=== PATIENT | female | born 1995 | race African-American/Black ===

== ENCOUNTER 2019-03-29 08:24 | Observation (INO) | payer MEDICAID ==
[2019-03-29] MEDS ORDERED: PREN-52 PO (23:18)
[2019-03-30] MEDS ORDERED: FERR325T6 PO (11:02)
== END 2019-03-29 10:23 | disposition home or self-care (01) ==
LOC: 8 EST LDRP 08:24
PROVIDERS: ADMIT Specialist; ATTEND Specialist
DX: O48.0 Post-term pregnancy (principal); Z3A.40 40 weeks gestation of pregnancy
CPT/HCPCS: 99281; G0378

== ENCOUNTER 2019-03-29 20:30 | Observation (INO) | payer MEDICAID ==
[2019-03-29] MEDS ORDERED: PREN-52 PO (23:18)
[2019-03-30] MEDS ORDERED: FERR325T6 PO (11:02)
== END 2019-03-29 23:25 | disposition home or self-care (01) ==
LOC: 8 EST LDRP 20:30
PROVIDERS: ADMIT Specialist; ATTEND Specialist
DX: O60.14X0 Preterm labor third trimester with preterm delivery third trimester, not applicable or unspecified (principal); Z3A.39 39 weeks gestation of pregnancy
CPT/HCPCS: 99281; G0378

== ENCOUNTER 2019-03-30 10:24 | Inpatient (IN) | payer MEDICAID ==
[~2019-03-30] VITALS: Ht 162.6 cm; Wt 114.8 kg
[~2019-03-30 10:24] MED LIST: PREN-52 PO
[2019-03-30] MEDS ORDERED: FERR325T6 PO (11:02)
[2019-03-30] MEDS ORDERED: LIDOCAINE HCL 1% 20ML VIAL (Pyxis) INJ INFIL PRN (11:15)
[2019-03-30] MEDS ORDERED: METHYLERGONOVINE MALEATE 0.2 MG/ML IM PRN (11:15)
[2019-03-30] MEDS ORDERED: NALOXONE HCL 0.4 MG/ML 1ML VIAL IM PRN (11:15)
[2019-03-30] MEDS ORDERED: DEXT 5%/LR + PITOCIN 20UNITS/L 1,000 ML IV PRN (11:15)
[2019-03-30] MEDS ORDERED: BUTORPHANOL TARTRATE 2 MG/ML VIAL IV PRN (11:15)
[2019-03-30] MEDS ORDERED: MISOPROSTOL 200MCG TABLET VG PRN (11:15)
[2019-03-30] MEDS: LACTATED RINGERS 1,000 ML IV SCH ×2 (11:41→12:35)
[2019-03-30 11:54] LABS: BASOPHILS % 0.2 % (0.0-2.0); HEMATOCRIT. 34.7 % (36.0-48.0); HEMOGLOBIN. 11.8 g/dL (12.0-16.0); LYMPHOCYTES % 9.3 % (20.0-50.0); MEAN CORPUSCULAR HEMOGLOBIN 29.2 pg (28.0-32.0); MEAN CORPUSCULAR VOLUME 85.6 fL (81.0-99.0); MEAN PLATELET VOLUME 12.3 fl (7.4-10.4); MONOCYTES % 4.5 % (2.0-8.0); PLATELET 141 x1000/uL (130-400); RED BLOOD CELL COUNT 4.06 mill/uL (4.2-5.4); RED CELL DISTRIBUTION WIDTH 15.1 % (11.6-14.6)
[2019-03-30] MEDS ORDERED: PENICILLIN G POTASSIUM 5 MMU in DEXT 5% WATER 100 ML IV SCH (12:00)
[2019-03-30 12:03] LABS: PARTIAL THROMBOPLASTIN TIME 29.4 sec (23.4-31.0)
[2019-03-30 12:04] LABS: CLARITY URINE TURBID (CLEAR); COLOR URINE DARK YELLOW (YELLOW); KETONES URINE 1+ (NEGATIVE); LEUKOCYTE ESTERASE URINE 2+ (NEGATIVE); NITRITE URINE NEGATIVE (NEGATIVE); OCCULT BLOOD URINE 2+ (NEGATIVE); PH URINE 5.5 (4.5-8.0); PROTEIN URINE 1+ (NEGATIVE); SPECIFIC GRAVITY URINE 1.025 (1.005-1.030)
[2019-03-30 12:31] LABS: HEPATITIS B SURFACE ANTIGEN NEGATIVE
[2019-03-30 12:48] LABS: *BARBITURATES SCREEN URINE NEGATIVE (NEGATIVE); *BENZODIAZEPINES SCREEN URINE NEGATIVE (NEGATIVE); *COCAINE SCREEN URINE NEGATIVE (NEGATIVE); METHADONE URINE SCREEN NEGATIVE (NEGATIVE); OPIATES URINE SCREEN NEGATIVE (NEGATIVE); PHENCYCLIDINE URINE SCREEN NEGATIVE (NEGATIVE)
[2019-03-30 12:49] LABS: *AMPHETAMINES SCREEN URINE NEGATIVE (NEGATIVE); CANNABINOID URINE SCREEN NEGATIVE (NEGATIVE)
[2019-03-30] MEDS ORDERED: LIDOCAINE HCL 2%/EPINEPHRINE 1:100,000 20 ML VIAL INFIL ONE (12:56)
[2019-03-30] MEDS ORDERED: ROPIVACAINE HCL/PF EPIDURAL 200 ML EP SCH (13:30)
[2019-03-30] MEDS ORDERED: PENICILLIN G POTASSIUM 2.5 MMU in DEXTROSE 5% WATER 50 ML IV SCH (16:00)
[2019-03-31] MEDS ORDERED: DEXT 5%/LR + PITOCIN 20UNITS/L 1,000 ML IV SCH (02:12)
[2019-03-31] MEDS ORDERED: HEMORRHOIDAL SUPP PR PRN (02:15)
[2019-03-31] MEDS ORDERED: BISACODYL 10MG SUPP PR PRN (02:15)
[2019-03-31] MEDS ORDERED: LANOLIN OINT 7GM TUBE TOP PRN (02:15)
[2019-03-31] MEDS ORDERED: IBUPROFEN 400MG TABLET PO PRN (02:15)
[2019-03-31] MEDS ORDERED: GLYCERIN/WITCH HAZEL LEAF MEDICATED PAD TOP PRN (02:15)
[2019-03-31] MEDS ORDERED: BENZOCAINE/LANOLIN/ALOE VERA SPRAY TOP PRN (02:15)
[2019-03-31] MEDS ORDERED: ACETAMINOPHEN WITH CODEINE 300/30MG TABLET PO PRN (02:15)
[2019-03-31 04:20] VITALS: BP 149/78
[2019-03-31] MEDS: ACETAMINOPHEN WITH CODEINE 300/30MG TABLET PO PRN ×2 (04:44→18:33)
[2019-03-31 05:00] VITALS: BP 151/72
[2019-03-31 08:00] VITALS: BP 127/56
[2019-03-31] MEDS: PRENATAL VIT/FE FUMARATE/FA TABLET PO SCH (08:34)
[2019-03-31] MEDS: SIMETHICONE 80MG TABLET CHEW PO SCH ×4 (08:34→20:59)
[2019-03-31 16:00] VITALS: BP 117/58
[2019-03-31 20:15] VITALS: BP 116/60
[2019-03-31] MEDS ORDERED: DOCUSATE SODIUM 100MG CAPSULE PO SCH (21:00)
[2019-04-01 03:56] VITALS: BP 121/67
[2019-04-01 07:41] LABS: BASOPHILS % 0.2 % (0.0-2.0); EOSINOPHILS % 0.6 % (0.0-5.0); HEMATOCRIT. 29.9 % (36.0-48.0); HEMOGLOBIN. 10.1 g/dL (12.0-16.0); LYMPHOCYTES % 20.1 % (20.0-50.0); MEAN CORPUSCULAR VOLUME 86.1 fL (81.0-99.0); MEAN PLATELET VOLUME 11.5 fl (7.4-10.4); MONOCYTES % 6.4 % (2.0-8.0); NEUTROPHILS % 72.7 % (40.0-76.0); PLATELET 109 x1000/uL (130-400); RED BLOOD CELL COUNT 3.47 mill/uL (4.2-5.4); RED CELL DISTRIBUTION WIDTH 15.2 % (11.6-14.6)
[2019-04-01 08:00] VITALS: BP 125/43
[2019-04-01] MEDS ORDERED: TETANUS, DIPHTHERIA, PERTUSSIS VAC/PF 0.5ML (>7YR OLD) IM ONE (08:00)
[2019-04-01] MEDS: FERROUS SULFATE 325MG TABLET PO SCH ×3 (08:31→17:37)
[2019-04-01] MEDS: PRENATAL VIT/FE FUMARATE/FA TABLET PO SCH (08:31)
[2019-04-01] MEDS: SIMETHICONE 80MG TABLET CHEW PO SCH ×3 (08:31→17:37)
[2019-04-01 15:43] VITALS: BP 137/46
[2019-04-01 20:00] VITALS: BP 122/78
[2019-04-02 04:00] VITALS: BP 124/64
[2019-04-02 08:00] VITALS: BP 114/46
[2019-04-02] MEDS: SIMETHICONE 80MG TABLET CHEW PO SCH (08:37)
[2019-04-02] MEDS: FERROUS SULFATE 325MG TABLET PO SCH (08:37)
[2019-04-02] MEDS: PRENATAL VIT/FE FUMARATE/FA TABLET PO SCH (08:37)
== END 2019-04-02 11:30 | disposition home or self-care (01) | DRG 560 ==
LOC: OBSVTOIN 10:24 → 8 EST LDRP 10:24 → 8EST 03-31 04:24
PROVIDERS: ADMIT Obstetrics & Gynecology; ATTEND Obstetrics & Gynecology
PROC: 10E0XZZ Delivery of Products of Conception, External Approach (ICD-10-PCS; principal; 2019-03-31)
PROC: 3E0R3BZ Introduction of Anesthetic Agent into Spinal Canal, Percutaneous Approach (ICD-10-PCS; 2019-03-31)
PROC: 00HU33Z Insertion of Infusion Device into Spinal Canal, Percutaneous Approach (ICD-10-PCS; 2019-03-31)
PROC: 0KQM0ZZ Repair Perineum Muscle, Open Approach (ICD-10-PCS; 2019-03-31)
DX: O77.0 Labor and delivery complicated by meconium in amniotic fluid (principal); D62 Acute posthemorrhagic anemia; O99.03 Anemia complicating the puerperium; O69.81X0 Labor and delivery complicated by cord around neck, without compression, not applicable or unspecified; Z37.0 Single live birth; Z3A.39 39 weeks gestation of pregnancy; O70.1 Second degree perineal laceration during delivery
CPT/HCPCS: 36415; 80305; 86592; 86703; 86762; 86850; 86900; 87340; 90715; 99281; G0378; J0595; J2540; J2590; J2795; J3490; J7060; A4315

== ENCOUNTER 2022-04-21 21:33 | Emergency (ER) | payer MEDICAID ==
[~2022-04-21] VITALS: Ht 165.1 cm; Wt 110.9 kg
[2022-04-22 02:05] VITALS: BP 126/68
== END 2022-04-22 02:06 | disposition home or self-care (01) ==
LOC: ER 21:33
DX: R51.9 Headache, unspecified (principal); M54.2 Cervicalgia
CPT/HCPCS: 99281

== ENCOUNTER 2022-04-22 10:14 | Emergency (ER) | payer MEDICAID ==
[~2022-04-22] VITALS: Ht 177.8 cm; Wt 106.0 kg
[2022-04-22 13:43] VITALS: BP 122/60
== END 2022-04-22 14:10 | disposition home or self-care (01) ==
LOC: ER 10:14
DX: R51.9 Headache, unspecified (principal)
CPT/HCPCS: 70551; 99284

== ENCOUNTER 2025-02-18 13:27 | Emergency (ER) | payer MEDICAID ==
[~2025-02-18] VITALS: Ht 162.6 cm; Wt 98.0 kg
[2025-02-18 13:49] VITALS: O2SAT 99
[2025-02-18 16:24] VITALS: BP 110/39; PULSE 85; RESP 12; TEMP 37.3; O2SAT 100
== END 2025-02-18 16:27 | disposition home or self-care (01) ==
LOC: ER 13:42
DX: R20.2 Paresthesia of skin (principal); R20.0 Anesthesia of skin
CPT/HCPCS: 81025; 99282

== ENCOUNTER 2025-03-29 00:31 | Emergency (ER) | payer MEDICAID ==
[~2025-03-29] VITALS: Ht 162.6 cm; Wt 85.0 kg
[2025-03-29 00:47] VITALS: O2SAT 99
[2025-03-29 01:33] LABS: BASOPHILS % 0.5 % (0.0-2.0); EOSINOPHILS % 0.7 % (0.0-5.0); HEMATOCRIT. 39.6 % (36.0-48.0); HEMOGLOBIN. 13.2 g/dL (12.0-16.0); LYMPHOCYTES % 23.3 % (20.0-50.0); MEAN PLATELET VOLUME 11.6 fl (7.4-10.4); MONOCYTES % 6.7 % (2.0-8.0); NEUTROPHILS % 68.8 % (40.0-76.0); PLATELET 239 x1000/uL (130-400); RED BLOOD CELL COUNT 4.61 mill/uL (4.2-5.4); RED CELL DISTRIBUTION WIDTH 13.9 % (11.6-14.6)
[2025-03-29 01:47] LABS: CREATININE 0.8 mg/dL (0.6-1.0); HCG SCREEN NEGATIVE
[2025-03-29 01:48] LABS: UREA NITROGEN BLOOD 6 mg/dL (9-23)
[2025-03-29 01:49] LABS: ASPARTATE AMINOTRANSFERASE 13 IU/L (<34)
[2025-03-29 01:50] LABS: BILIRUBIN DIRECT 0.3 mg/dL (<=3.0); BILIRUBIN TOTAL 0.9 mg/dL (0.1-1.0); PROTEIN TOTAL 8.5 g/dL (6.0-8.3)
[2025-03-29] MEDS: ONDANSETRON HCL 4MG/2ML INJ IV STA (02:14)
[2025-03-29] MEDS: SODIUM CHLORIDE 0.9% 1,000 ML IV ONE (02:14)
[2025-03-29] MEDS ORDERED: ONDA4TAB50 MT (02:49)
[2025-03-29 02:59] LABS: CLARITY URINE CLOUDY (CLEAR); COLOR URINE YELLOW (YELLOW); PH URINE 5.5 (4.5-8.0); PROTEIN URINE 1+ (NEGATIVE); SPECIFIC GRAVITY URINE 1.024 (1.005-1.030)
[2025-03-29 03:00] LABS: GLUCOSE URINE NEGATIVE (NEGATIVE); KETONES URINE 4+ (NEGATIVE); NITRITE URINE NEGATIVE (NEGATIVE); OCCULT BLOOD URINE NEGATIVE (NEGATIVE); UROBILINOGEN URINE 1.0 E.U./dL (0.2-1.0)
[2025-03-29 03:01] LABS: LEUKOCYTE ESTERASE URINE TRACE (NEGATIVE)
[2025-03-29 03:36] VITALS: BP 100/50; PULSE 93; RESP 13; TEMP 36.7; O2SAT 100
[2025-03-29 03:40] LABS: SQUAMOUS EPITHELIAL CELL URINE 2+ /lpf (RARE/1+)
[2025-03-29 03:42] LABS: RBC URINE 0-2 /hpf (0-2)
[2025-03-29 03:44] LABS: BACTERIA URINE 1+
== END 2025-03-29 03:47 | disposition home or self-care (01) ==
LOC: ER 00:31
DX: R11.2 Nausea with vomiting, unspecified (principal)
CPT/HCPCS: 80076; 80048; 81003; 84703; 83690; 85025; 36415; 96361; 96374; 99283; J2405; J7030; Z7610

== ENCOUNTER 2025-04-06 17:43 | Emergency (ER) | payer MEDICAID ==
[~2025-04-06] VITALS: Ht 165.1 cm; Wt 70.0 kg
[~2025-04-06 17:43] MED LIST changes: +ONDA4TAB50 MT; -PREN-52 PO
[2025-04-06 17:45] VITALS: O2SAT 99
[2025-04-06] MEDS ORDERED: KETOROLAC 15MG/ML VIAL IV ONE (18:30)
[2025-04-06] MEDS ORDERED: ONDANSETRON HCL 4MG/2ML INJ IV ONE (18:30)
[2025-04-06 19:47] LABS: BASOPHILS % 0.5 % (0.0-2.0); EOSINOPHILS % 0.9 % (0.0-5.0); HEMATOCRIT. 37.7 % (36.0-48.0); HEMOGLOBIN. 12.9 g/dL (12.0-16.0); LYMPHOCYTES % 22.7 % (20.0-50.0); MEAN PLATELET VOLUME 12.2 fl (7.4-10.4); MONOCYTES % 8.6 % (2.0-8.0); NEUTROPHILS % 67.3 % (40.0-76.0); PLATELET 219 x1000/uL (130-400); RED BLOOD CELL COUNT 4.46 mill/uL (4.2-5.4); RED CELL DISTRIBUTION WIDTH 14.1 % (11.6-14.6)
[2025-04-06] MEDS: SODIUM CHLORIDE 0.9% 1,000 ML IV ONE (20:14)
[2025-04-06] MEDS: ONDANSETRON HCL 4MG/2ML INJ IV SCH (20:20)
[2025-04-06 20:45] LABS: CREATININE 0.8 mg/dL (0.6-1.0); ETHANOL BLOOD < 10 mg/dL (<10); UREA NITROGEN BLOOD < 5 mg/dL (9-23)
[2025-04-06 20:47] LABS: ASPARTATE AMINOTRANSFERASE 17 IU/L (<34); BILIRUBIN DIRECT 0.5 mg/dL (<=3.0); BILIRUBIN TOTAL 1.3 mg/dL (0.1-1.0); PROTEIN TOTAL 9.4 g/dL (6.0-8.3)
[2025-04-06 20:49] LABS: HCG SCREEN NEGATIVE
[2025-04-06] MEDS: KETOROLAC 15MG/ML VIAL IV SCH (21:06)
[2025-04-06] MEDS ORDERED: FAMO-135 PO (21:59)
[2025-04-06] MEDS: POTASSIUM CHLORIDE 20MEQ/PACKET PO ONE (22:02)
[2025-04-06 22:34] VITALS: BP 103/61; PULSE 94; RESP 14; TEMP 36.8; O2SAT 100
== END 2025-04-06 22:47 | disposition home or self-care (01) ==
LOC: ER 17:43
DX: R10.9 Unspecified abdominal pain (principal); R11.2 Nausea with vomiting, unspecified; Z79.899 Other long term (current) drug therapy
CPT/HCPCS: 80076; 80048; 80320; 84703; 83690; 85025; 36415; 71045; 74176; 93005; 96361; 96374; 96375; 99285; J1885; J2405; J7030; Z7610 ×2; G0480